=== PATIENT | male | born 1985 | race Caucasian/White ===

== ENCOUNTER 2018-09-07 11:34 | Emergency (ER) | payer MEDICAID ==
[~2018-09-07] VITALS: Ht 193 cm; Wt 127.0 kg
--- NOTE | 2018-09-07 11:38 | NUR ---
PT [id number], FROM HOME, C/O ABD PAIN AND NAUSEA VOMOTING x 4 HRS, ADMIT HEROIN AND MARIJUANA. PT IS AAOX4, NOT IN RESPIRATORY DISTRESS, V/S STABLE, HOOKED TO MONITOR, KEPT RESTED AND COMFORTABLE.
--- NOTE | 2018-09-07 11:40 | NUR ---
SEEN AND EXAMINED BY DR. REY.
--- NOTE | 2018-09-07 11:45 | NUR ---
IV LINE ESTABLISHED, LABS DRAWNED AND SENT TO LAB. AWAITING RESULTS.
[2018-09-07 11:50] LABS: BASOPHILS % (AUTO) 0.3 % (0.0-2.0); EOSINOPHILS % (AUTO) 0.1 % (0.0-6.0); HEMATOCRIT 47 % (39-51); HEMOGLOBIN 16.3 g/dL (13.5-17.5); LYMPHOCYTES # (AUTO) 1.6 /CMM (0.8-4.8); LYMPHOCYTES % (AUTO) 15.3 % (20.0-44.0); MEAN CORPUSCULAR HGB CONC 35 g/dl (31.0-36.0); MEAN CORPUSCULAR VOLUME 93 fL (80-96); MONOCYTES # (AUTO) 0.7 /CMM (0.1-1.30); MONOCYTES % (AUTO) 6.8 % (2.0-12.0); NEUTROPHILS # (AUTO) 8.1 /CMM (1.8-8.9); NEUTROPHILS % (AUTO) 77.5 % (43.0-81.0); PLATELET COUNT (AUTO) 308 /CMM (150-450); RED BLOOD CELL COUNT(AUTO) 5.04 MIL/uL (4.5-6.0); WHITE BLOOD COUNT (AUTO) 10.5 K/uL (4.3-11.0)
[2018-09-07] MEDS ORDERED: MAG HYDROX/AL HYDROX/SIMETH 30 ML UDC ONE (11:51)
[2018-09-07] MEDS ORDERED: ONDANSETRON HCL/PF 4 MG/2 ML VIAL ONE (11:51)
[2018-09-07] MEDS ORDERED: FAMOTIDINE/PF INJ 20 MG/2 ML VIAL IV ONE ×2 (11:52→12:00)
[2018-09-07 11:58] LABS: CALCIUM, SERUM 9.7 mg/dL (8.5-10.1); CREATININE 1.1 mg/dL (0.6-1.3); POTASSIUM 4.3 mmol/L (3.5-5.1)
[2018-09-07] MEDS ORDERED: IV NS 0.9% 1,000 ML BAG IV ONE (12:00)
[2018-09-07] MEDS ORDERED: MAG HYDROX/AL HYDROX/SIMETH 30 ML UDC PO ONE (12:00)
[2018-09-07] MEDS ORDERED: ONDANSETRON HCL/PF 4 MG/2 ML VIAL IVP ONE (12:00)
[2018-09-07 12:05] LABS: ALBUMIN 4.8 g/dL (3.4-5.0); BILIRUBIN,DIRECT 0.1 mg/dL (0.0-0.2); BILIRUBIN,TOTAL 0.5 mg/dL (0.2-1.0); TOTAL PROTEIN, SERUM 7.4 g/dL (6.4-8.2)
[2018-09-07] MEDS ORDERED: OLANZAPINE 5 MG TABLET ONE (12:38)
--- NOTE | 2018-09-07 12:47 | NUR ---
cm patel (mother)
[2018-09-07] MEDS ORDERED: OLANZAPINE 5 MG TABLET PO ONE (13:00)
[2018-09-07] MEDS ORDERED: KETOROLAC TROMETHAMINE INJ 30 MG/ML VIAL IV ONE (13:00)
[2018-09-07] MEDS ORDERED: KETOROLAC TROMETHAMINE INJ 30 MG/ML VIAL ONE (13:19)
--- NOTE | 2018-09-07 13:50 | NUR ---
[facility] IN [facility]; [phone] EXT 128
--- NOTE | 2018-09-07 13:59 | NUR ---
called [facility], inpatient drug rehab spoke to samaria, will send transport to pickup patient.
--- NOTE | 2018-09-07 13:59 | NUR ---
PER [facility]AK[facility], PT MENTIONED S/I HE WAS LEAVING FACILITY. SPOKE TO PT. PT DENIES AND S/I OR H/I, PT FEELS BETTER, ABD PAIN IS UNDER CONTROLLED. MD DR REY AWARE. [facility] WILL ARRANGE FOR TRANSPORT
--- NOTE | 2018-09-07 15:09 | NUR ---
SPOKE TO CAROL, AWARE OF PTS PLAN OF CARE. PT WILL BE PICKED UP BY [facility]
[2018-09-07 15:38] VITALS: BP 143/70
--- NOTE | 2018-09-07 15:39 | NUR ---
Patient discharged to home in stable condition. Written and verbal after care instructions given. Patient verbalizes understanding of instruction. IV removed. Catheter intact and site benign. Pressure and 4x4 applied to site. No bleeding noted.
== END 2018-09-07 15:40 | disposition home or self-care (01) ==
LOC: ER 11:36
DX: R10.13 Epigastric pain (principal); R11.2 Nausea with vomiting, unspecified; K21.9 Gastro-esophageal reflux disease without esophagitis
CPT/HCPCS: 36415; 80048; 80076; 83690; 85025; 96361; 96374; 96375; 99283; J1885; J2405; J3490; J7030